=== PATIENT | female | born 2000 ===

== ENCOUNTER 2023-05-16 02:56 | Emergency (ER) | payer BC, SELFPAY ==
[2023-05-16] MEDS ORDERED: Ketorolac Tromethamine 30 MG/ML VIAL ONE (03:42)
== END 2023-05-16 04:12 | disposition home or self-care (01) ==
LOC: ERS 02:56
DX: K08.89 Other specified disorders of teeth and supporting structures (principal)
CPT/HCPCS: 96372; 99282; J1885